=== PATIENT | male | born 1985 | race Caucasian/White ===

== ENCOUNTER 2019-05-01 05:47 | Emergency (ER) | payer OTHER ==
[~2019-05-01] VITALS: Ht 182.9 cm; Wt 87.9 kg
[2019-05-01 05:56] VITALS: BP 125/79
--- NOTE | 2019-05-01 06:15 | NUR ---
Pt presents to ed c/o n/LRQ, LLQ abd pain since eating "uncooked pork" last night. States intermitent loose stools as well. States has same s/s since last night. Denies any further complaints. States able to tolerate po intake.
[2019-05-01] MEDS ORDERED: ONDANSETRON ODT 4 MG ONE (06:17)
--- NOTE | 2019-05-01 06:18 | NUR ---
Report to sharon mosquera.
[2019-05-01] MEDS ORDERED: ONDANSETRON ODT 4 MG PO ONE (06:30)
[2019-05-01 06:44] LABS: BASOPHILS # (AUTO) 0.01 x10^3/uL (0-0.1); BASOPHILS % (AUTO) 0 % (0-1); EOSINOPHILS # (AUTO) 0.13 x10^3/uL (0-0.4); EOSINOPHILS % (AUTO) 2 % (1-7); LYMPHOCYTES # (AUTO) 0.84 x10^3/uL (1-3.4); LYMPHOCYTES % (AUTO) 9 % (22-44); MD NO; MEAN CORPUSCULAR HEMOGLOBIN 33.1 pg (27.5-34.5); MEAN CORPUSCULAR HGB CONC 33.7 g/dL (33.2-36.2); MEAN CORPUSCULAR VOLUME 98.2 fL (81-97); MEAN PLATELET VOLUME 7.5 fL (7.4-10.4); MONOCYTES # (AUTO) 0.33 x10^3/uL (0.2-0.8); MONOCYTES % (AUTO) 4 % (2-9); NEUTROPHILS # (AUTO) 7.58 x10^3/uL (1.8-6.8); NEUTROPHILS % (AUTO) 85 % (42-75); PLATELET COUNT 198 x10^3/uL (130-400); RED BLOOD COUNT 4.86 x10^6/uL (4.38-5.82); RED CELL DISTRIBUTION WIDTH 12.8 % (9.4-14.8)
--- NOTE | 2019-05-01 06:53 | NUR ---
Received bedside report from [facility]. BILLIE. No needs expressed. Call light within reach. All questions answered.
[2019-05-01 06:56] LABS: ALANINE AMINOTRANSFERASE 44 U/L (12-78); ALBUMIN 3.8 g/dL (3.4-5.0); ANION GAP 3 mmol/L (5-15); CHLORIDE 110 mmol/L (98-107); CREATININE 1.03 mg/dL (0.7-1.3)
[2019-05-01 06:58] LABS: ALKALINE PHOSPHATASE 54 U/L (45-117); BILIRUBIN,TOTAL 0.4 mg/dL (0.2-1.0); TOTAL PROTEIN 7.1 g/dL (6.4-8.2)
--- NOTE | 2019-05-01 07:28 | NUR ---
Patient given discharge instructions and they have confirmed that they understand the instructions. Patient ambulatory with steady gait. Pt left with prescription, d/c paperwork, and all personal belongings. Pt encouraged to return to ED if symptoms worsen or change.
== END 2019-05-01 07:32 | disposition home or self-care (01) ==
LOC: EDBD 05:47 → ED 07:15
DX: A09 Infectious gastroenteritis and colitis, unspecified (principal); F17.200 Nicotine dependence, unspecified, uncomplicated; K20.9 Esophagitis, unspecified
CPT/HCPCS: 36415; 80053; 83690; 85025; 99283; Q0162